=== PATIENT | male | born 1945 | race Caucasian/White ===

== ENCOUNTER 2019-04-10 16:58 | Inpatient (IN) | payer OTHER ==
[~2019-04-10] VITALS: Ht 182.9 cm; Wt 127.0 kg
[~2019-04-10 16:58] MED LIST: ADVAIR 2501 DISK W/1; CEPHULAC10 G/15 ML PO; GLIMEPIRIDE4 MG; HYOSCYAMINE0.125 M1; LOSARTAN POTAS100 MG; PROTONIX40 MG; TESSALON200 MG PO; VITAMIN D2000 UNIT; ZETIA10 MG
[2019-04-10] MEDS ORDERED: HUMALOG100 UNIT/1 (17:04)
[2019-04-10] MEDS ORDERED: GLIPIZIDE5 MG (17:05)
== END 2019-04-20 20:35 | disposition expired | DRG 190 ==
LOC: ER 16:58 → ICU-2 19:10 → ICU 19:10
PROVIDERS: ADMIT Internal Medicine Cardiovascular Disease
PROC: B246ZZZ Ultrasonography of Right and Left Heart (ICD-10-PCS; principal; 2019-04-10)
PROC: 3E0F7GC Introduction of Other Therapeutic Substance into Respiratory Tract, Via Natural or Artificial Opening (ICD-10-PCS; 2019-04-10)
PROC: 0T9B70Z Drainage of Bladder with Drainage Device, Via Natural or Artificial Opening (ICD-10-PCS; 2019-04-10)
PROC: 4A12X4Z Monitoring of Cardiac Electrical Activity, External Approach (ICD-10-PCS; 2019-04-10)
PROC: 4A033R1 Measurement of Arterial Saturation, Peripheral, Percutaneous Approach (ICD-10-PCS; 2019-04-11)
PROC: 5A09457 Assistance with Respiratory Ventilation, 24-96 Consecutive Hours, Continuous Positive Airway Pressure (ICD-10-PCS; 2019-04-11)
PROC: 0DH67UZ Insertion of Feeding Device into Stomach, Via Natural or Artificial Opening (ICD-10-PCS; 2019-04-11)
PROC: 3E0G76Z Introduction of Nutritional Substance into Upper GI, Via Natural or Artificial Opening (ICD-10-PCS; 2019-04-11)
PROC: 02HV33Z Insertion of Infusion Device into Superior Vena Cava, Percutaneous Approach (ICD-10-PCS; 2019-04-13)
PROC: 02HV33Z Insertion of Infusion Device into Superior Vena Cava, Percutaneous Approach (ICD-10-PCS; 2019-04-13)
PROC: 3E0436Z Introduction of Nutritional Substance into Central Vein, Percutaneous Approach (ICD-10-PCS; 2019-04-13)
PROC: 8E0ZXY6 Isolation (ICD-10-PCS; 2019-04-13)
PROC: BW28ZZZ Computerized Tomography (CT Scan) of Head (ICD-10-PCS; 2019-04-15)
DX: J44.1 Chronic obstructive pulmonary disease with (acute) exacerbation (principal); I50.43 Acute on chronic combined systolic (congestive) and diastolic (congestive) heart failure; J96.01 Acute respiratory failure with hypoxia; R65.11 Systemic inflammatory response syndrome (SIRS) of non-infectious origin with acute organ dysfunction; J15.211 Pneumonia due to Methicillin susceptible Staphylococcus aureus; J45.51 Severe persistent asthma with (acute) exacerbation; R18.8 Other ascites; I13.0 Hypertensive heart and chronic kidney disease with heart failure and stage 1 through stage 4 chronic kidney disease, or unspecified chronic kidney disease; E87.2 Acidosis; E44.0 Moderate protein-calorie malnutrition; N17.8 Other acute kidney failure; E87.0 Hyperosmolality and hypernatremia; E86.0 Dehydration; E87.8 Other disorders of electrolyte and fluid balance, not elsewhere classified; I11.0 Hypertensive heart disease with heart failure; I08.2 Rheumatic disorders of both aortic and tricuspid valves; E11.22 Type 2 diabetes mellitus with diabetic chronic kidney disease; E11.65 Type 2 diabetes mellitus with hyperglycemia; I95.89 Other hypotension; I46.2 Cardiac arrest due to underlying cardiac condition; N18.2 Chronic kidney disease, stage 2 (mild); K76.1 Chronic passive congestion of liver; Z66 Do not resuscitate; Z79.4 Long term (current) use of insulin; Z99.81 Dependence on supplemental oxygen; N39.41 Urge incontinence